=== PATIENT | female | born 1990 | race Caucasian/White ===

== ENCOUNTER 2018-02-26 00:42 | Emergency (ER) | payer MEDICAID, OTHER ==
[~2018-02-26] VITALS: Ht 175.3 cm; Wt 102.5 kg
[2018-02-26 00:47] VITALS: BP 118/51
--- NOTE | 2018-02-26 01:03 | NUR ---
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 PT WAS DX WITH SCIATICA AND USING BENGAY OINTMENT AND IBUPROFEN WITH NO RELIEF . DENIES N/V/D; SKIN IS PINK/WARM/DRY; AAOX4 WITH EVEN AND STEADY GAIT; LUNGS CLEAR BL; HR EVEN AND REGULAR; PT DENIES ANY FEVER, CP, SOB, OR COUGH AT THIS TIME; PATIENT STATES PAIN OF 10/10 AT THIS TIME; VSS; PATIENT POSITIONED FOR COMFORT; HOB ELEVATED; BEDRAILS UP X2; BED DOWN. ER MD MADE AWARE OF PT STATUS.
--- NOTE | 2018-02-26 01:11 | NUR ---
report given to rosa stauffer.
[2018-02-26] MEDS ORDERED: CYCLOBENZAPRINE 10 MG TAB PO ONE (01:40)
[2018-02-26] MEDS ORDERED: METOCLOPRAMIDE 10 MG/2 ML INJ VIAL IM ONE (01:40)
[2018-02-26] MEDS ORDERED: MORPHINE SULFATE 10 MG/ML SYR IM ONE (01:40)
[2018-02-26] MEDS ORDERED: DEXAMETHASONE 10 MG/ML VIAL IM ONE (01:40)
--- NOTE | 2018-02-26 02:35 | NUR ---
PT LYING IN BED, PAIN IS LEVEL 8/10 AT THIS TIME, MD MADE AWARE OF STATUS, VITALS STABLE.
[2018-02-26] MEDS ORDERED: MORPHINE SULFATE 4 MG/ML SYR ONE (02:56)
[2018-02-26] MEDS ORDERED: MORPHINE SULFATE 2 MG/ML SYR ONE (02:57)
[2018-02-26 03:50] VITALS: BP 117/79
--- NOTE | 2018-02-26 03:50 | NUR ---
Patient discharged with v/s stable. Written and verbal after care instructions given and explained. Patient alert, oriented and verbalized understanding of instructions. Ambulatory with steady gait. All questions addressed prior to discharge. ID band removed. Patient advised to follow up with PMD. Rx of FLEXERIL, PERCOCET AND NAPROSYN WERE given. Patient educated on indication of medication including possible reaction and side effects. Opportunity to ask questions provided and answered.
== END 2018-02-26 03:50 | disposition home or self-care (01) ==
LOC: MED 00:42
DX: M54.32 Sciatica, left side (principal); M41.9 Scoliosis, unspecified; E78.00 Pure hypercholesterolemia, unspecified; J45.909 Unspecified asthma, uncomplicated; Z90.49 Acquired absence of other specified parts of digestive tract; Z88.8 Allergy status to other drugs, medicaments and biological substances
CPT/HCPCS: 96372; 99284; J1100; J2270; J2765

== ENCOUNTER 2018-08-31 17:00 | Emergency (ER) | payer MEDICAID ==
[~2018-08-31] VITALS: Ht 177.8 cm; Wt 104.8 kg
[2018-08-31 17:35] VITALS: BP 123/62
--- NOTE | 2018-08-31 17:48 | NUR ---
PATIENT AMBULATED TO ER BED 5.
--- NOTE | 2018-08-31 17:50 | NUR ---
BIB HER MOTHER WITH C/O ABDOMINAL PAIN AND HEAD ACHE 10/10, DIZZINESS AND NAUSEA. PER PT SHE HAD A MIGRAINE REED X 2 DAYS AND TOOK A TOTAL OF 800MG OF IBUPROFEN WITH NO RELIEF. . DENIES N/V/D; SKIN IS PINK/WARM/DRY; AAOX4 WITH EVEN AND STEADY GAIT; LUNGS CLEAR BL; HR EVEN AND REGULAR; PT DENIES ANY FEVER, CP, SOB, OR COUGH AT THIS TIME; PATIENT STATES PAIN OF 10/10 AT THIS TIME; VSS; PATIENT POSITIONED FOR COMFORT; HOB ELEVATED; BEDRAILS UP X2; BED DOWN. ER MD MADE AWARE OF PT STATUS.
--- NOTE | 2018-08-31 19:10 | NUR ---
report given to pm nurse
--- NOTE | 2018-08-31 19:47 | NUR ---
PATIENT LEFT WITHOUT BEING SEEN BY DR. ZAMORA. NO FURTHER CARE PROVIDED FOR PATIENT.
== END 2018-08-31 19:47 | disposition left against medical advice (07) ==
LOC: MED 17:00
DX: G43.909 Migraine, unspecified, not intractable, without status migrainosus (principal); R10.9 Unspecified abdominal pain; Z53.21 Procedure and treatment not carried out due to patient leaving prior to being seen by health care provider
CPT/HCPCS: 81002; 81025